=== PATIENT | female | born 1995 | race Two or more races ===

== ENCOUNTER → 2019-05-13 | Outpatient (CLI) | payer OTHER | END | disposition home or self-care (01) | LOC: PRENATAL 08:00 | DX: O24.419 Gestational diabetes mellitus in pregnancy, unspecified control (principal) ==

== ENCOUNTER → 2019-06-23 | Outpatient (CLI) | payer OTHER | END | disposition home or self-care (01) | LOC: PRENATAL 06-12 08:25 | DX: O24.312 Unspecified pre-existing diabetes mellitus in pregnancy, second trimester (principal); O35.3XX0 Maternal care for (suspected) damage to fetus from viral disease in mother, not applicable or unspecified; O09.92 Supervision of high risk pregnancy, unspecified, second trimester ==

== ENCOUNTER 2019-07-26 13:14 | Emergency (ER) | payer OTHER ==
[~2019-07-26] VITALS: Ht 152.4 cm; Wt 59.9 kg
[2019-07-26] MEDS ORDERED: LANTUS SOL100 UNIT/1 (14:05)
[2019-07-26] MEDS ORDERED: HUMALOG100 UNIT/2 (14:06)
== END 2019-07-26 20:44 | disposition home or self-care (01) ==
LOC: ER 13:14
DX: O26.892 Other specified pregnancy related conditions, second trimester (principal); K52.89 Other specified noninfective gastroenteritis and colitis; O24.414 Gestational diabetes mellitus in pregnancy, insulin controlled

== ENCOUNTER 2019-08-09 15:20 | Inpatient (IN) | payer OTHER ==
[~2019-08-09] VITALS: Ht 152.4 cm; Wt 59.0 kg
[~2019-08-09 15:20] MED LIST: HUMALOG100 UNIT/2; LANTUS SOL100 UNIT/1
[2019-08-09] MEDS ORDERED: PRENATAL CAPLE1 EAC1 PO (23:43)
[2019-08-27] MEDS ORDERED: LANTUS SOL100 UNIT/1 SUBCUTANEO (11:52)
[2019-08-27] MEDS ORDERED: HUMALOG100 UNIT/1 SUBCUTANEO (11:52)
== END 2019-08-26 10:55 | disposition home or self-care (01) | DRG 831 ==
LOC: OBS/DEL 15:20 → LDR 08-10 19:39 → OB/GYN 08-10 19:39
PROVIDERS: ADMIT Obstetrics & Gynecology
PROC: BT4JZZZ Ultrasonography of Kidneys and Bladder (ICD-10-PCS; principal; 2019-08-10)
PROC: 4A1HXCZ Monitoring of Products of Conception, Cardiac Rate, External Approach (ICD-10-PCS; 2019-08-10)
PROC: B246ZZZ Ultrasonography of Right and Left Heart (ICD-10-PCS; 2019-08-11)
PROC: BY4CZZZ Ultrasonography of Second Trimester, Single Fetus (ICD-10-PCS; 2019-08-12)
DX: O23.02 Infections of kidney in pregnancy, second trimester (principal); A41.51 Sepsis due to Escherichia coli [E. coli]; O98.812 Other maternal infectious and parasitic diseases complicating pregnancy, second trimester; O99.830 Other infection carrier state complicating pregnancy; O24.112 Pre-existing type 2 diabetes mellitus, in pregnancy, second trimester; E11.65 Type 2 diabetes mellitus with hyperglycemia; I08.3 Combined rheumatic disorders of mitral, aortic and tricuspid valves; Z79.4 Long term (current) use of insulin

== ENCOUNTER → 2019-09-17 | Outpatient (CLI) | payer OTHER ==
[~2019-09-17] MED LIST changes: +HUMALOG100 UNIT/1 SUBCUTANEO; +LANTUS SOL100 UNIT/1 SUBCUTANEO; +PRENATAL CAPLE1 EAC1 PO
== END | disposition home or self-care (01) ==
LOC: PRENATAL 09-04 13:00
DX: O26.843 Uterine size-date discrepancy, third trimester (principal); O24.313 Unspecified pre-existing diabetes mellitus in pregnancy, third trimester; O36.8130 Decreased fetal movements, third trimester, not applicable or unspecified

== ENCOUNTER → 2019-10-16 | Outpatient (CLI) | payer OTHER | END | disposition home or self-care (01) | LOC: PRENATAL 08:57 | DX: O26.843 Uterine size-date discrepancy, third trimester (principal); O35.0XX1 Maternal care for (suspected) central nervous system malformation in fetus, fetus 1; O24.313 Unspecified pre-existing diabetes mellitus in pregnancy, third trimester ==

== ENCOUNTER 2019-10-27 06:23 | Inpatient (IN) | payer OTHER ==
[~2019-10-27] VITALS: Ht 152.4 cm; Wt 71.2 kg
[2019-10-27] MEDS ORDERED: HUMALOG100 UNIT/1 SUBCUTANEO (08:01)
[2019-10-27] MEDS ORDERED: LANTUS SOL100 UNIT/1 SUBCUTANEO (08:02)
== END 2019-10-30 13:35 | disposition home or self-care (01) | DRG 786 ==
LOC: LDR 06:23 → OB/GYN 06:23 → LDR 06:36 → OB/GYN 20:24
PROVIDERS: ADMIT Obstetrics & Gynecology
PROC: 4A1HXCZ Monitoring of Products of Conception, Cardiac Rate, External Approach (ICD-10-PCS; 2019-10-27)
PROC: 10D00Z1 Extraction of Products of Conception, Low, Open Approach (ICD-10-PCS; principal; 2019-10-27 18:00)
DX: O65.8 Obstructed labor due to other maternal pelvic abnormalities (principal); O24.02 Pre-existing type 1 diabetes mellitus, in childbirth; E10.9 Type 1 diabetes mellitus without complications; O99.824 Streptococcus B carrier state complicating childbirth; Z3A.38 38 weeks gestation of pregnancy; Z37.0 Single live birth; Z79.4 Long term (current) use of insulin